=== PATIENT | male | born 1995 | race African-American/Black ===

== ENCOUNTER 2017-03-14 01:31 | Emergency (ER) | payer SELFPAY ==
[~2017-03-14] VITALS: Ht 180.3 cm; Wt 78.9 kg
[2017-03-14 02:02] LABS: HEMATOCRIT 44.5 % (38.0-50.0); MCH 30.1 PG (29.0-34.0); MCHC 34.4 G/DL (30.0-36.0); MCV 87.6 FL (86-99); MEAN PLAT.VOLUME 10.3 uM^3 (9.0-12.4); PLATELET COUNT 197 K/uL (156-360); RBC DIS.WIDTH-CV 12.3 % (11.8-14.6); RBC DIS.WIDTH-SD 39.8 % (39-53); RED BLOOD COUNT 5.08 M/uL (4.00-5.50); WHITE BLOOD COUNT 7.6 K/uL (4.1-10.2)
[2017-03-14 02:14] LABS: CHLORIDE 106 mEq/L (99-109); POTASSIUM 4.6 mEq/L (3.7-5.4); SODIUM 140 mEq/L (136-147)
[2017-03-14 02:16] LABS: GLUCOSE 95 mg/dL (70-99)
[2017-03-14 02:17] LABS: ANION GAP 20 MEQ/L (2-14)
[2017-03-14 02:19] LABS: SERUM ETHYL ALCOHOL 143 mg/dL
[2017-03-14 02:20] LABS: GFR ESTIMATE (CALCULATED) > 59 mL/min/
[2017-03-14 02:21] LABS: UREA NITROGEN (BUN) 13 mg/dL (9-23)
[2017-03-14 03:09] LABS: COCAINE PRESUMPTIVE POSITIVE (150 ng/mL); PHENCYCLIDINE NEGATIVE (25 ng/mL); THC CANNABINOIDS PRESUMPTIVE POSITIVE (50 ng/mL)
[2017-03-14 03:10] LABS: ADD MEDTOX COMMENT Y; AMPHETAMINE NEGATIVE (500 ng/mL); BARBITURATES NEGATIVE (200 ng/mL); BENZODIAZEPINES NEGATIVE (150 ng/mL); INTERNAL CONTROLS VALID? YES; METHADONE NEGATIVE (200 ng/mL); METHAMPHETAMINE NEGATIVE (500 ng/mL); OPIATES (MORPHINE) NEGATIVE (100 ng/mL); OXYCODONE PRESUMPTIVE POSITIVE (100 ng/mL); PROPOXYPHENE NEGATIVE (300 ng/mL); TRICYCLIC ANTIDEPRESSANTS NEGATIVE (300 ng/mL)
[2017-03-14 06:04] VITALS: BP 134/75
== END 2017-03-14 06:05 ==
LOC: EME 01:31
PROVIDERS: Emergency Medicine
DX: T50.901A Poisoning by unspecified drugs, medicaments and biological substances, accidental (unintentional), initial encounter (principal); F19.10 Other psychoactive substance abuse, uncomplicated; F10.129 Alcohol abuse with intoxication, unspecified; Y90.6 Blood alcohol level of 120-199 mg/100 ml
CPT/HCPCS: 80048; 84999; 85027; 99281; 99285; G0480; J7030